=== PATIENT | female | born 1985 | race Caucasian/White ===

== ENCOUNTER 2017-04-22 10:25 | Emergency (ER) | payer MEDICAID ==
[2017-04-22] MEDS ORDERED: NS 1,000 ML IV ONE (10:43)
[2017-04-22] MEDS ORDERED: ONDANSETRON 4 MG/2 ML VIAL IVP ONE (10:43)
--- NOTE | 2017-04-22 10:43 | EDPHY ---
General Narrative: CHIEF COMPLAINT: Flank pain x4 days HISTORY OF PRESENT ILLNESS: Patient complains of left flank pain. This has been going on for several weeks but has worsened abruptly over the past 4 days. It is on the left side. Radiates in the left side of the abdomen. It is worse with movement. No position of comfort. Some nausea but no vomiting. No fever chills. No lower abdominal pain. No right-sided abdominal pain. No trauma or injury. No history of kidney stone which does have history of pyelonephritis remotely. Some frequent urination and dysuria 2 days ago. No gross hematuria noted. No evaluation for this yet. Currently on her menstrual. Day 5. No other associated complaints or modifying factors. REVIEW OF SYSTEMS: Ten systems reviewed and are negative unless otherwise noted in the HPI PCP: No PCP SPECIALISTS: None PAST MEDICAL HISTORY: Arthritis PAST SURGICAL HISTORY: No recent surgeries SOCIAL HISTORY: Nonsmoker. Occasional alcohol. No drug use. Works as a cook at a [employer] FAMILY HISTORY: Noncontributory EXAMINATION General Appearance: Alert, no distress, in obvious discomfort, no position of comfort Head: normocephalic, atraumatic Eyes: Pupils equal and round, no conjunctival pallor or injection ENT, Mouth: Mucous membranes moist Neck: Normal inspection, supple, non-tender Respiratory: Lungs are clear to auscultation. No wheezing, rhonchi or crackles Cardiovascular: Regular rate and rhythm. No murmur. Symmetric DP and radial pulses 2+ Gastrointestinal: Abdomen is soft and nondistended. Mild left upper quadrant tenderness. No right lower quadrant tenderness. No guarding. No tympany. Moderate left CVA tenderness. Back: non-tender, no bony abnormalities Neurological: A&O, nonfocal, normal gait Skin: Warm and dry, no rash. No petechiae purpura Extremities: Nontender, no pedal edema Psychiatric: Mood and affect normal DIFFERENTIAL DIAGNOSES: Including but not limited to renal colic, ureteral stone, pyelonephritis, UTI MDM: 10:45 a.m. Left flank pain with history examination consistent with renal colic versus nephrolithiasis. She is tachycardic but she is not tachypneic or hypotensive. She is afebrile. She does not meet SIRS criteria but does appear to be in obvious discomfort. I have ordered laboratory studies, IV fluid, pain medication and renal ultrasound. She may require CT scan without contrast for further delineation. She is in pain but in no acute distress 11:25 a.m. Laboratory studies revealed leukocytosis with urinary tract infection. There is microscopic hematuria, but this is confounded by her current menstruation. I have ordered Toradol IV and IV Rocephin. I will re-evaluate. 11:35 a.m. Patient re-evaluated. Her pain has improved but is worsening after her ultrasound that was just completed. I have ordered further pain medication as well. Disposition pending her ultrasound findings. 11:55 a.m. Notified by radiologist Dr. Macdonald. Renal ultrasound does not reveal any evidence of hydronephrosis, stone or perinephric stranding. 12:00 p.m. Patient re-evaluated. She is feeling better. We discussed the likely diagnosis of pyelonephritis. We discussed need for antibiotics, increase fluid intake. I did offer admission to the hospital but she has declined. She would like to go home. I do feel this is reasonable and she is stable for discharge with normal vital signs and improvement of her symptoms. We discussed medication prescriptions. We discussed ED precautions and short term followup in 24-48 hours. She is comfortable this plan and discharged home stable condition. SUPERVISION: Patient was independently examined, but I discussed the case with my secondary supervising physician Dr. Gustafson - History Smoking Status: Never smoked - Objective Vital Signs: Initial Vital Signs Temperature (C) 98.6 F 04/22/17 10:29 Heart Rate 116 H 04/22/17 10:29 Respiratory Rate 18 04/22/17 10:29 Blood Pressure 116/70 04/22/17 10:29 O2 Sat (%) 97 04/22/17 10:29 O2 Delivery Mode Room Air Allergies/Adverse Reactions: No Known Allergies Allergy (Unverified 04/22/17 10:28) Home Medications: Medication Instructions Recorded Imbrel 04/22/17 Promethazine HCl [Phenergan 25mg 25 mg PO Q8 PRN #7 tab 04/22/17 (*)] levOFLOXACIN [Levaquin] 500 mg PO DAILY #7 tablet 04/22/17 oxyCODONE HCL/ACETAMINOPHEN 1 each PO Q4-6PRN PRN #7 tablet 04/22/17 [Percocet 5-325 mg Tablet] Laboratory Results: Laboratory Results 04/22/17 11:11 04/22/17 11:11 04/22/17 04/22/17 04/22/17 11:11 11:11 11:11 WBC 15.11 10^3/uL H 10^3/uL (3.80-9.50) RBC 4.85 10^6/uL 10^6/uL (4.18-5.33) Hgb 12.8 g/dL g/dL (12.6-16.3) Hct 38.1 % % (38.0-47.0) MCV 78.6 fL L fL (81.5-99.8) MCH 26.4 pg L pg (27.9-34.1) MCHC 33.6 g/dL g/dL (32.4-36.7) RDW 15.7 % H % (11.5-15.2) Plt Count 393 10^3/uL 10^3/uL (150-400) MPV 9.2 fL fL (8.7-11.7) Neut % (Auto) 83.2 % H % (39.3-74.2) Lymph % (Auto) 8.0 % L % (15.0-45.0) [place] % (Auto) 7.8 % % (4.5-13.0) Eos % (Auto) 0.1 % L % (0.6-7.6) Baso % (Auto) 0.5 % % (0.3-1.7) Nucleat RBC Rel Count 0.0 % % (0.0-0.2) Absolute Neuts (auto) 12.57 10^3/uL H 10^3/uL (1.70-6.50) Absolute Lymphs (auto) 1.21 10^3/uL 10^3/uL (1.00-3.00) Absolute Monos (auto) 1.18 10^3/uL H 10^3/uL (0.30-0.80) Absolute Eos (auto) 0.01 10^3/uL L 10^3/uL (0.03-0.40) Absolute Basos (auto) 0.08 10^3/uL 10^3/uL (0.02-0.10) Absolute Nucleated RBC 0.00 10^3/uL 10^3/uL (0-0.01) Immature Gran % 0.4 % % (0.0-1.1) Immature Gran # 0.06 10^3/uL 10^3/uL (0.00-0.10) Sodium 133 mEq/L L mEq/L (134-144) Potassium 3.8 mEq/L mEq/L (3.5-5.2) Chloride 99 mEq/L mEq/L (97-110) Carbon Dioxide 21 mEq/l L mEq/l (22-31) Anion Gap 13 mEq/L mEq/L (8-16) BUN 12 mg/dL mg/dL (7-23) Creatinine 1.0 mg/dL mg/dL (0.6-1.0) Estimated GFR > 60 Glucose 198 mg/dL H mg/dL (70-100) Calcium 9.5 mg/dL mg/dL (8.5-10.4) Total Bilirubin 1.0 mg/dL mg/dL (0.1-1.4) Conjugated Bilirubin 0.3 mg/dL mg/dL (0.0-0.5) Unconjugated Bilirubin 0.7 mg/dL mg/dL (0.0-1.1) AST 24 IU/L IU/L (14-46) ALT 25 IU/L IU/L (9-52) Alkaline Phosphatase 101 IU/L IU/L (38-126) Total Protein 7.0 g/dL g/dL (6.3-8.2) Albumin 4.1 g/dL g/dL (3.5-5.0) Lipase 52 IU/L IU/L (23-300) Beta HCG, Qual NEGATIVE Urine Color Urine Appearance Urine pH Ur Specific [place] Urine Protein Urine Ketones Urine Blood Urine Nitrate Urine Bilirubin Urine Urobilinogen Ur Leukocyte Esterase Urine RBC Urine WBC Ur Epithelial Cells Urine Bacteria Urine Mucus Urine Glucose 04/22/17 10:59 WBC RBC Hgb Hct MCV MCH MCHC RDW Plt Count MPV Neut % (Auto) Lymph % (Auto) [place] % (Auto) Eos % (Auto) Baso % (Auto) Nucleat RBC Rel Count Absolute Neuts (auto) Absolute Lymphs (auto) Absolute Monos (auto) Absolute Eos (auto) Absolute Basos (auto) Absolute Nucleated RBC Immature Gran % Immature Gran # Sodium Potassium Chloride Carbon Dioxide Anion Gap BUN Creatinine Estimated GFR Glucose Calcium Total Bilirubin Conjugated Bilirubin Unconjugated Bilirubin AST ALT Alkaline Phosphatase Total Protein Albumin Lipase Beta HCG, Qual Urine Color YELLOW Urine Appearance HAZY Urine pH 5.0 (5.0-7.5) Ur Specific [place] 1.016 (1.002-1.030) Urine Protein 1+ H (NEGATIVE) Urine Ketones 1+ H (NEGATIVE) Urine Blood 2+ H (NEGATIVE) Urine Nitrate POSITIVE H (NEGATIVE) Urine Bilirubin NEGATIVE (NEGATIVE) Urine Urobilinogen NEGATIVE EU EU (0.2-1.0) Ur Leukocyte Esterase 3+ H (NEGATIVE) Urine RBC 5-10 /hpf H /hpf (0-3) Urine WBC 25-50 /hpf H /hpf (0-3) Ur Epithelial Cells TRACE /lpf /lpf (NONE-1+) Urine Bacteria 4+ /hpf H /hpf (NONE SEEN) Urine Mucus TRACE /lpf /lpf (NONE-1+) Urine Glucose NEGATIVE (NEGATIVE) Medications Given: Discontinued Medications Sodium Chloride (Ns) 1,000 mls @ 0 mls/hr IV ONCE ONE; Wide Open PRN Reason: Protocol Stop: 04/22/17 10:44 Last Admin: 04/22/17 11:33 Dose: 1,000 mls Morphine Sulfate (Morphine) 4 mg IVP EDNOW ONE Stop: 04/22/17 10:45 Last Admin: 04/22/17 11:33 Dose: 4 mg Ondansetron HCl (Zofran) 4 mg IVP EDNOW ONE Stop: 04/22/17 10:44 Last Admin: 04/22/17 11:33 Dose: 4 mg Departure - Departure Disposition: Home, Routine, Self-Care Clinical Impression: Pyelonephritis, Flank pain Condition: Good Instructions: Urinary Tract Infection in Women (ED), Flank Pain (ED), Kidney Infection (ED) Additional Instructions: 1. Medications as prescribed to completion 2. Increase fluid intake 3. ED precautions as discussed 4. Contact the on-call primary care physician as provided and discussed within 24-48 hours Referrals: Orion Aleman MD [Medical Doctor] - As per Instructions Stand Alone Forms: Work Excuse Prescriptions: levOFLOXACIN [Levaquin] 500 mg PO DAILY #7 tablet oxyCODONE HCL/ACETAMINOPHEN [Percocet 5-325 mg Tablet] 1 each PO Q4-6PRN PRN #7 tablet PRN Reason: Pain, Breakthrough Promethazine HCl [Phenergan 25mg (*)] 25 mg PO Q8 PRN #7 tab PRN Reason: Nausea/Vomiting, Use 1st
[2017-04-22 11:20] LABS: PLATELET COUNT 393 10^3/uL (150-400)
[2017-04-22] MEDS ORDERED: KETOROLAC 30 MG/1 ML SDV IVP ONE (11:36)
[2017-04-22 12:02] VITALS: RESP 16
[2017-04-22 12:42] VITALS: BP 123/85; PULSE 80; TEMP 98.4; O2SAT 97
== END 2017-04-22 12:42 | disposition home or self-care (01) ==
DX: N12 Tubulo-interstitial nephritis, not specified as acute or chronic (principal); E86.9 Volume depletion, unspecified
CPT/HCPCS: 96365; J0696; J1885; J2405

== ENCOUNTER 2017-06-01 09:45 | Emergency (ER) | payer MEDICAID ==
[2017-06-01 09:59] VITALS: RESP 18
[2017-06-01] MEDS ORDERED: ONDANSETRON DISINTEGRATING 4 MG TAB PO ONE (10:17)
[2017-06-01] MEDS ORDERED: ACETAMINOPHEN 325 MG TAB PO ONE (10:18)
--- NOTE | 2017-06-01 10:39 | EDPHY ---
H & P Stated Complaint: Cough/Cold SX Time Seen by Provider: 06/01/17 10:27 HPI/ROS: CHIEF COMPLAINT: Cough cold congestion x4 days HISTORY OF PRESENT ILLNESS: 32-year-old female history of rheumatoid arthritis , on Enbrel, complaining of 4 days of cough, cold, congestion, fever. She has been experiencing post-tussive emesis. No abdominal pain. No urinary abnormality. No back or flank pain. No chest pain. No dyspnea. No nuchal rigidity. No back or flank pain. REVIEW OF SYSTEMS: A ten point review of systems was performed and is negative with the exception of the items mentioned in the HPI PAST MEDICAL & SURGICAL HISTORY: Rheumatoid arthritis on Enbrel SOCIAL HISTORY:Nonsmoker PHYSICAL EXAM (Prior to examination, patient consented to physical exam, hands were washed and my usual and customary physical exam procedures followed) 1) GENERAL: Well-developed, well-nourished, alert and oriented. Appears nontoxic 2) HEAD: Normocephalic, atraumatic 3) HEENT: Pupils equal, round, reactive to light bilaterally. Sclera anicteric. Nasopharynx: Congestion, oropharynx, clear, no lesions. Left ear : Bulging erythematous tympanic membrane with effusion and no evidence of perforation. EAC clear. Right ear: Clear EAC, nonbulging non erythematous tympanic membrane. 4) NECK: Full range of motion, no meningeal signs. 5) LUNGS: Clear auscultation bilaterally, no wheezes, no rhonchi, no retractions. 6) HEART: Regular rate and rhythm, no murmur, no heave, no gallop. 7) ABDOMEN: No guarding, no rebound, no focal tenderness, negative McBurney's, negative Deal's, negative Rovsing's, negative peritoneal sign, 8) MUSCULOSKELETAL: Moving all extremities, no focal areas of tenderness, no obvious trauma. No peripheral edema or discoloration. 9) BACK: No CVA tenderness, no midline vertebral tenderness, no fluctuance, no step-off, no obvious trauma, no visual or palpable abnormality. 10) SKIN: No rash, no petechiae. 11) Psychiatric: Patient is oriented X 3, there is no agitation. DIFFERENTIAL DIAGNOSIS: In no particular include but limited to meningitis, influenza, otitis media, bronchitis - Personal History LMP (Females 10-55): 8-14 Days Ago Current Tetanus Diphtheria and Acellular Pertussis (TDAP): Yes - Medical/Surgical History Hx Asthma: No Hx Chronic Respiratory Disease: No Hx Diabetes: No Hx Cardiac Disease: No Hx Renal Disease: No Hx Cirrhosis: No Hx Alcoholism: No Hx HIV/AIDS: No Hx Splenectomy or Spleen Trauma: No Other PMH: RA - Social History Smoking Status: Never smoked Constitutional: Initial Vital Signs Temperature (C) 37.1 C 06/01/17 09:57 Heart Rate 92 06/01/17 09:57 Respiratory Rate 18 06/01/17 09:57 Blood Pressure 134/85 H 06/01/17 09:57 O2 Sat (%) 98 06/01/17 09:57 O2 Delivery Mode Room Air Allergies/Adverse Reactions: No Known Allergies Allergy (Unverified 04/22/17 10:28) Home Medications: Medication Instructions Recorded Imbrel 04/22/17 Promethazine HCl [Phenergan 25mg 25 mg PO Q8 PRN #7 tab 04/22/17 (*)] levOFLOXACIN [Levaquin] 500 mg PO DAILY #7 tablet 04/22/17 oxyCODONE HCL/ACETAMINOPHEN 1 each PO Q4-6PRN PRN #7 tablet 04/22/17 [Percocet 5-325 mg Tablet] Benzonatate [Tessalon Pearles (RX)] 200 mg PO TID PRN #15 cap 06/01/17 Ondansetron Odt [Zofran Odt] 4 mg PO Q4PRN PRN #5 tab 06/01/17 Oseltamivir Phosphate [Tamiflu] 75 mg PO BIDMEAL 5 Days cap 06/01/17 Medical Decision Making ED Course/Re-evaluation: 11:48 a.m.: Patient re-evaluated with serial examinations. She is feeling improvement after oral acetaminophen. She remains in maintain normal saturations, not tachypneic. I discussed this positive influenza testing. Given her history of Enbrel use I recommended initiation of antiviral therapy. I do not think that hospitalization or chest x-ray is currently indicated. She has been given strict return precautions. Definitely if she develops new or worsening symptoms, she develops chest pain, dyspnea, she needs to return to the ER immediately. Otherwise to follow up with primary care provider the next 2-3 days. She feels comfortable with this plan. All questions and concerns addressed by myself. Care of patient under supervision of secondary supervising physician Dr Phillip Harvey with whom I discussed case - Data Points Laboratory Results: 06/01/17 10:37 Nasal Influenza A PCR NEGATIVE FOR FLU A (NEGATIVE) Nasal Influenza B PCR FLU B DETECTED H (NEGATIVE) Medications Given: Discontinued Medications Acetaminophen (Tylenol) 650 mg PO EDNOW ONE Stop: 06/01/17 10:19 Last Admin: 06/01/17 10:26 Dose: 650 mg Ondansetron HCl (Zofran Odt) 4 mg PO EDNOW ONE Stop: 06/01/17 10:18 Last Admin: 06/01/17 10:23 Dose: 4 mg Departure - Departure Disposition: Home, Routine, Self-Care Clinical Impression: Influenza B Condition: Good Instructions: Influenza (ED) Additional Instructions: . Return to the emergency department immediately for change in breathing habits , change in voice, change in swallowing habits, change in mental status, or any other symptoms that concern you. Referrals: Jannette Jackson MD [Medical Doctor] - 2-3 days, call for appt. Stand Alone Forms: Work Excuse Prescriptions: Benzonatate [Tessalon Pearles (RX)] 200 mg PO TID PRN #15 cap PRN Reason: Cough, Moderate Ondansetron Odt [Zofran Odt] 4 mg PO Q4PRN PRN #5 tab PRN Reason: Nausea Oseltamivir Phosphate [Tamiflu] 75 mg PO BIDMEAL 5 Days cap
[2017-06-01] MEDS ORDERED: OSELTAMIVIR PHOSPHATE 75 MG CAP PO ONE (11:46)
[2017-06-01 12:21] VITALS: BP 122/86; PULSE 85; TEMP 98.1; O2SAT 95
== END 2017-06-01 12:18 | disposition home or self-care (01) ==
DX: J10.1 Influenza due to other identified influenza virus with other respiratory manifestations (principal)